=== PATIENT | female | born 1960 | race Hispanic/Latino ===

== ENCOUNTER 2024-09-13 17:51 | Emergency (ER) | payer MEDICARE, SELFPAY ==
--- NOTE | ~2024-09-13 | US_ITS ---
EXAMINATION: US venous doppler [facility] DATE: 09/13/2024 19:29 INDICATION: lower extremity swelling R>L. DVT concern . TECHNIQUE: Grayscale images without and with compression and Doppler images of the bilateral lower ex tremity veins were obtained. COMPARISON: None FINDINGS: The right common femoral vein, profunda (deep) femoral vein, femoral vein, popliteal vein, peroneal v ein, posterior tibial veins, gastrocnemius vein, and greater saphenous vein are patent. The left common femoral vein, profunda (deep) femoral vein, femoral vein, popliteal vein, peroneal v ein, posterior tibial veins, gastrocnemius vein, and greater saphenous vein are patent. IMPRESSION: Patent bilateral lower extremity veins. No evidence of deep venous thrombosis. Reviewed, dictated and finalized at location K.
[2024-09-13 17:55] VITALS: BP 151/54; PULSE 65; RESP 18; TEMP 36.4; O2SAT 100
--- NOTE | 2024-09-13 18:13 | PC.NURSE ---
Pt complains of R arm and vein pain as well.
--- OUTSIDE RECORDS SUMMARY | 2024-09-13 19:21 | XMS_ITS | Clinical Summary ---
Author Organization [facility] Address [address] [place] [address] Care Team Providers Care Brim Molder Name Role Phone Sally Victor MD Primary Care Provider Source Comments [facility],non-owned Affiliates and Associated Physician Practices is amultiple site organization consisting of ambulatory clinics and hospital sitesin [place], [place], [place] and [place]. This disclosure is being madepursuant to the Care Everywhere program and may not contain all information available regarding this patient. Last updated 18.[facility] Allergies No known active allergies Medications * Be aware that medications may not be up to date on this document. Alwaysverify current medications with the patient. Medication Sig Dispensed Refills Start Date End Date Status levothyroxine (SYNTHROID) 88 MCG tablet Take 88 mcg by mouth once daily Active Metoprolol Succinate 100 MG CS24 Active Active Problems Problem Noted Date Diagnosed Date Cyst of left breast 07/14/2019 Breast pain 04/23/2019 Immunizations Name Administration Dates Next Due INFLUENZA VACCINE 03/14/2019 Family History Medical History Relation Name Comments Cancer - Breast Maternal Aunt Cancer - Uterine Mother Diabetes - Type 2 Sister 1 ghanshyam Diabetes - Type 1 Sister 2 leonor Cancer - Thyroid Sister 3 Relation Name Status Comments Maternal Aunt Mother Sister 1 ghanshyam Alive Sister 2 leonor Alive Sister 3 Social History Tobacco Use Types Packs/Day Years Used Date Smoking Tobacco: Never Smokeless Tobacco: Never Alcohol Use Standard Drinks/Week Comments Not Currently 0 (1 standard drink = 0.6 oz pur e alcohol) AUDIT-C Answer Date Recorded Frequency of Alcohol Consumption Never 04/23/2019 Average Number of Drinks Not on file 019 Frequency of Binge Drinking Not on file 04/13 Sex and Gender Information Value Date Recorded Sex Assigned at Not on file Gender Identity Not on file Sexual Orientation Not on file Last Filed Vital Signs Vital Sign Reading Time Taken Comments Blood Pressure 151/75 10/09/2023 7:00 PM CDT Pulse 78 10/09/2023 7:00 PM CDT Temperature 37.1 C (98.8 F) 10/09/2023 7:00 PM CDT Respiratory Rate 14 10/09/2023 7:00 PM CDT Oxygen Saturation 98% 10/09/2023 7:00 PM CDT Inhaled Oxygen Concentration - - Weight 74.8 kg (165 lb) 10/09/2023 9:15 AM CDT Height 162.6 cm (5' 4 ) 10/09/2023 9:15 AM CDT Body Mass Index 28.32 10/09/2023 9:15 AM CDT Plan of Treatment Health Maintenance Due Date Last Done Comments BONE DENSITY TESTING 1960 COLOGUARD (AGES 45-75) - COLON CA SCREENING 1958 COLON MONITORING 1958 COLONOSCOPY - COLON CA SCREENING 1958 CT COLONOGRAPHY - COLON CA SCREENING 1960 Colorectal Cancer Screening 1958 FIT - COLON CA SCREENING 1958 FLEX SIG - COLON CA SCREENING 1958 LIPID TESTING 1958 MEDICARE AWV 12 MONTHS 1958 HEPATITIS C SCREENING 07/30/1976 DTAP/TDAP/TD VACCINES (1 - Tdap) 1977 PNEUMOCOCCAL VACCINE 50+ (1 of 1 - PCV) 2008 ZOSTER VACCINE (1 of 2) 2008 COVID-19 VACCINE ( - season) 2024 06/07/2021, 10/17/2020, 09/20/2020 INFLUENZA VACCINE (#1) 2024 , 04/12/2022, 03/18/2021, Additional history exists DEPRESSION SCREENING 06/13/2024 MAMMOGRAM 09/07/2025 09/08/2023, 04/13, 04/07/2021, Additional history exists SCREENING FOR DIABETES 10/08/2026 10/09/2023 Respiratory Syncytial Virus (RSV) Vaccine Pt: or over 60 yrs (1 - 1-dose 75+ series) 2033 HEPATITIS B VACCINE Aged Out No longe r eligible based on patient's age to complete this topic HIB VACCINE Aged Out No longer eligi ble based on patient's age to complete this topic HPV VACCINE Aged Out No longer eligi ble based on patient's age to complete this topic MENINGOCOCCAL (Group B) VACCINE SHARED DECISION-MAKING Aged Out No longer eligible based on patient's age to complete this topic MENINGOCOCCAL GROUPS A/C/Y/W VACCINE Aged Out No longer eligible based on patient's age to complete this topic Procedures Procedure Name Priority Date/Time Associated Diagnosis Comments COMPREHENSIVE METABOLIC PANEL STAT 10/09/2023 9:51 AM CDT MAMMO BILAT SCREENING W APOORVA Routine 09/08/2023 1:14 PM CDT Screening breast examination from Last 3 Months or Most Recently Relevant to Health Maintenance Results * (ABNORMAL) COMPREHENSIVE METABOLIC PANEL (10/09/2023 9:51 AM CDT) BUN 10 7 - 26 mg/dL 10/09/2023 10:31 AM [facility] Creatinine 0.57 0.56 - 0.96 mg/dL 10/09/2023 10:31 AM [facility] Sodium 138 136 - 145 mmol/L 10/09/2023 10:31 AM [facility] Potassium 4.0 3.5 - 4.5 mmol/L 10/09/2023 10:31 AM [facility] Chloride 104 98 - 107 mmol/L 10/09/2023 10:31 AM [facility] CO2 23 22 - 29 mmol/L 10/09/2023 10:31 AM [facility] Glucose 95 70 - 115 mg/dL 10/09/2023 10:31 AM [facility] Calcium 9.9 8.4 - 10.2 mg/dL 10/09/2023 10:31 AM [facility] Protein Total 8.4(H) 6.0 - 8.3 g/dL 10/09/2023 10:31 AM [facility] Albumin 4.3 3.4 - 5.0 g/dL 10/09/2023 10:31 AM [facility] Bilirubin Total 0.5 0.2 - 1.2 mg/dL 10/09/2023 10:31 AM [facility] Alkaline Phosphatase 92 40 - 150 U/L 10/09/2023 10:31 AM [facility] ALT 20 5 - 55 U/L 10/09/2023 10:31 AM [facility] AST 25 5 - 34 U/L 10/09/2023 10:31 AM [facility] Anion Gap 11 6 - 16 10/09/2023 10:31 AM [facility] BUN/Creatinine Ratio 18 7 - 23 10/09/2023 10:31 AM [facility] Osmolality Calculated 285 275 - 295 mOsm/kg 10/09/2023 10:31 AM [facility] Albumin/Globulin Ratio 1.0(L) 1.1 - 2.3 10/09/2023 10:31 AM [facility] eGFR by CKD-EPI >90 >=90 mL/min/1.7 3 m2 10/09/2023 10:31 AM [facility] Blood BLOOD SPECIMEN / Unknown Venipuncture / Unknown 10/09/2023 9:51 AM CDT 10/09/2023 10:03 AM CDT Lucas Barroso DO LAB - CHEMISTRY OR DERABLES Performing Organization Address [facility] de Phone Number [facility] [address] [place] [address], [facility] [phone] * MAMMO BILAT SCREENING W APOORVA (09/08/2023 1:14 PM CDT) Anatomical Region Laterality Modality Breast Bilateral Mammography 09/08/2023 4:34 PM CDT Impressions 09/08/2023 4:42 PM CDT : 1. Small mass in the left breast 2. No suspicious finding the right breast RECOMMENDATION: Diagnostic left mammogram. If indicated at that time, left breast ultrasound will be performed. Patient will be contacted and scheduled to return for the additional imaging. OVERALL ASSESSMENT: BI-RADS CATEGORY 0: INCOMPLETE: NEED ADDITIONAL IMAGING EVALUATION. > Interpreting Provider: Annelise Tabor MD on 09/08/2023 4:42 PM Narrative 09/08/2023 4:42 PM CDT EXAM: DIGITAL MAMMO BILAT SCREENING W APOORVA AND WITH CAD DATE OF EXAM: 09/08/2023 1:15 PM HISTORY: Screening. RISK ASSESSMENT CALCULATION: Patient completed a breast cancer risk assessment during her appointment on 04/23/2022. Based upon the information she provided and her mammographic breast density, her lifetime risk of developing breast cancer is 6 % (Average Risk <15%; Intermediate / Moderate Risk 15-19%; High Risk > 20%). COMPARISON: Prior breast imaging studies back to 2017, with the most recent dated 2021. TECHNIQUE: Tomosynthesis (3D) and reconstructed synthetic 2-D images acquired and reviewed in the bilateral craniocaudal and mediolateral oblique projections. A total of 5 images were obtained. Computer-aided detection (CAD) was utilized. BREAST COMPOSITION: Category A: The breasts are almost entirely fatty. FINDINGS: Right breast: No suspicious finding the right breast Left breast: In the left central slightly outer breast at mid depth there is a oval mass measuring approximately 0.7 cm. This is approximately 4 cm from the nipple on the craniocaudal view and best visualized on image 17 of 57. Sally Victor MD MAMMO ORDERABL ES from Last 3 Months or Most Recently Relevant to Health Maintenance Care Teams Brim Molder Relationship Specialty Start Date End Date Sally Victor MD [address], [place] [id number] PCP - General 03/19/19
--- OUTSIDE RECORDS SUMMARY | 2024-09-13 19:22 | XMS_ITS | Clinical Summary ---
Author Organization [facility] Address [address] [place] [address] Care Team Providers Care Roll Operator Name Role Phone Marcos Calles DO Primary Care Provider [phone] Allergies Active Allergy Reactions Criticality Noted Date Comments Hydrochlorothiazide Other (see comment) Medium 025 Urinary frequency Medications metoprolol tartrate (LOPRESSOR) 50 MG tabletIndication s:Primary hypertension Take 1 tablet (50 mg total) by mouth 2 (two) times daily. 60 tablet 2 08/16/19 25 Active losartan (COZAAR) 50 MG tabletIndication s:Primary hypertension Take 1 tablet (50 mg total) by mouth every evening. 30 tablet 2 08/16/19 25 Active levothyroxine (SYNTHROID) 88 MCG tabletIndication s:Hypothyroidism , unspecified type Take 1 tablet (88 mcg total) by mouth every morning. 30 tablet 2 08/16/19 25 Active hydroCHLOROthiaz kishore (MICROZIDE) 12.5 MG capsule Take 1 capsule (12.5 mg total) by mouth every morning. 025 Discontinued metoprolol tartrate (LOPRESSOR) 100 MG tablet Take 0.5 tablets (50 mg total) by mouth daily. 025 Discontinued levothyroxine (SYNTHROID) 88 MCG tablet Take 1 tablet (88 mcg total) by mouth every morning. 025 Discontinued(Re order) Active Problems Problem Noted Date Diagnosed Date Primary hypertension 08/15/2024 Hypothyroidism, unspecified type 08/15/2024 Postmenopausal 08/15/2024 Encounters Date Type Department Care Team Description 09/11/2024 1:00 PM CDT - 09/11/2024 11:59 PM CDT Hospital Encounter [facility] [address] [place] [address] Jose Messina MD Arrived Discharge Disposition: Home or Self Care (Routine Discharge) 09/11/2024 Travel 08/28/2024 11:00 AM CDT Laboratory Only [address] [address] Jose Messina MD 08/28/2024 - 08/28/2024 11:59 PM CDT Hospital Encounter [facility] [address] [place] [address] Jose Messina MD Discharge Disposition: Home or Self Care (Routine Discharge) 08/28/2024 Travel 08/15/2024 12:40 PM BRAND SALES MANAGER Office Visit [address] [address] Jose Messina MD Hypertension 08/15/2024 Travel from Last 3 Months Immunizations Name Administration Dates Next Due Fluzone High Dose (IIV, trivalent, 0.5mL) 2024 Social History Tobacco Use Types Packs/Day Years Used Date Smoking Tobacco: Never Smokeless Tobacco: Never Tobacco Cessation:Counseling Given: Yes Alcohol Use Standard Drinks/Week Comments Never 0 (1 standard drink = 0.6 oz pur e alcohol) PHQ-2 Answer Date Recorded Patient Health Questionnaire-2 Score 0 08/15/2024 Comments No Sex and Gender Information Value Date Recorded Sex Assigned at Female 08/02/2024 11:27 AM BRAND SALES MANAGER Legal Sex Female 7:36 PM CDT Gender Identity Not on file Sexual Orientation Not on file Last Filed Vital Signs Vital Sign Reading Time Taken Comments Blood Pressure 149/76 08/15/2024 12:59 PM BRAND SALES MANAGER Pulse 59 08/15/2024 12:55 PM BRAND SALES MANAGER Temperature 36.4 C (97.6 F) 08/15/2024 12:55 PM BRAND SALES MANAGER Respiratory Rate 19 08/15/2024 12:55 PM BRAND SALES MANAGER Oxygen Saturation 99% 08/15/2024 12:55 PM BRAND SALES MANAGER Inhaled Oxygen Concentration - - Weight 73.1 kg (161 lb 3.2 oz) 08/15/2024 12:55 PM BRAND SALES MANAGER Height - - Body Mass Index - - Plan of Treatment Upcoming Encounters Date Type Department Care Team (Late st Contact Info) Description 10/22/2024 10:00 AM CDT Office Visit [facility] Medical Group Multispecialty Care - [facility] [address] [facility] [place] [id number] Jose Messina MD [address] [place] [address]. [place] [address] Altaf Miranda PA-C [address] [place] [address] Health Maintenance Due Date Last Done Comments Colorectal Cancer Screening Colonoscopy (10 Years) 1960 Zoster Vaccines (1 of 2) 2008 Annual Medicare Wellness Visit 2023 COVID-19 Vaccine ( season) 2025 06/07/2021, 10/17/2020, 09/20/2020 Postponed from 02/12/2024 (Patient Refused) Mammogram Screening 09/11/2026 09/11/2024, 10/07/2023, 09/08/2023, Additional history exists DTaP, Tdap and Td Vaccines (2 - Td or Tdap) 08/02/2027 08/02/2017 RSV Immunization or 60+ Years (1 - 1-dose 75+ series) 2033 Pneumococcal Vaccine: 65+ Years Completed 09/30/2023 PHQ-2 (Physician Jasper) Completed 08/15/2024 Hepatitis C Completed 08/28/2024 Dexa Scan (General) Completed 09/11/2024 Meningococcal B Vaccine Aged Out No l onger eligible based on patient's age to complete this topic Meningococcal Vaccine Aged Out No kary catrina eligible based on patient's age to complete this topic RSV Immunizations Under 20 Months Aged Out No longer eligible based on patient's age to complete this topic Procedures Procedure Name Priority Date/Time Associated Diagnosis Comments MG SCREENING W APOORVA LIZ DIGI Routine 09/11/2024 2:00 PM CDT Encounter for screening mammogram for malignant neoplasm of breast BONE DENSITY/DEXA Routine 09/11/2024 1:5 1 PM CDT Postmenopausal LIPID PANEL Routine 08/28/2024 10:57 AM CDT Primary hypertension BASIC METABOLIC PANEL Routine 08/28/2024 10:57 AM CDT Primary hypertension CBC W/DIFF AUTOMATED Routine 08/28/2024 10:57 AM CDT Primary hypertension HEPATITIS C ANTIBODY Routine 08/28/2024 10:57 AM CDT Encounter for hepatitis C screening test for low risk patient TSH W/REFLEX Routine 08/28/2024 10:57 AM CDT Hypothyroidism, unspecified type COLLECTION VENOUS BLOOD VENIPUNCTURE Routine 08/28/2024 Hypothyroidism, unspecified type Encounter for hepatitis C screening test for low risk patient from Last 3 Months Results * MG SCREENING W APOORVA LIZ DIGI (09/11/2024 2:00 PM CDT) Anatomical Region Laterality Modality Breast Bilateral Mammography 09/11/2024 2:28 PM CDT Impressions 09/11/2024 2:32 PM CDT IMPRESSION: No significant interval change. No mammographic evidence of malignancy. RECOMMENDATION: Routine ScreeningBilateral OVERALL IMAGING ASSESSMENT: ACR BI-RADS 2 - BENIGN FINDING(S). Ordered By: JOSE MESSINA Interpreted By: Shahriar Scott, 09/11/2024 2:28 PM Narrative 09/11/2024 2:32 PM CDT [facility] [address] [place] [address] EXAMINATION: SCREENING W APOORVA LIZ DIGI INDICATIONS: Screening TECHNIQUE: Digital full field CC and MLO screening mammography bilaterally to include 3-D Tomosynthesis technique. This study was read with the assistance of a computer-aided detection system. HISTORY: No reported breast complaint. Prior right breast biopsy. No documented personal or first degree family history of breast cancer. No documented prior breast procedure. COMPARISON: Multiple prior examinations available for comparison dating back to 08/10/2011, the most recent of 10/07/2023, 08/31/2023, 04/23/2022, and 04/07/2021. TISSUE DENSITY: There are scattered areas of fibroglandular density. FINDINGS: Typically benign round, rim, and vascular calcifications bilaterally. Biopsy clip at the inner middle depth right breast. No suspicious microcalcification or mass. No developing asymmetry or architectural distortion. No axillary adenopathy. Procedure Note Shahriar Scott MD - 09/11/2024 [facility] [address] [place] [address] EXAMINATION: SCREENING W APOORVA LIZ DIGI INDICATIONS: Screening TECHNIQUE: Digital full field CC and MLO screening mammography bilaterallyto include 3-D Tomosynthesis technique. This study was read with theassistance of a computer-aided detection system. HISTORY: No reported breast complaint. Prior right breast biopsy. Nodocumented personal or first degree family history of breast cancer. Nodocumented prior breast procedure. COMPARISON: Multiple prior examinations available for comparison datingback to 08/10/2011, the most recent of 10/07/2023, 08/31/2023, 04/23/2022,and 04/07/2021. TISSUE DENSITY: There are scattered areas of fibroglandular density. FINDINGS: Typically benign round, rim, and vascular calcificationsbilaterally. Biopsy clip at the inner middle depth right breast. Nosuspicious microcalcification or mass. No developing asymmetry orarchitectural distortion. No axillary adenopathy. IMPRESSION: No significant interval change. No mammographic evidence ofmalignancy. RECOMMENDATION: Routine ScreeningBilateral OVERALL IMAGING ASSESSMENT: ACR BI-RADS 2 - BENIGN FINDING(S). Ordered By: JOSE MESSINA Interpreted By: Shahriar Scott, 09/11/2024 2:28 PM Jose Messina MD MAMMO Final Result * BONE DENSITY/DEXA (09/11/2024 1:51 PM CDT) Anatomical Region Laterality Modality Bone Mammography 09/11/2024 1:44 PM CDT Impressions 09/11/2024 1:45 PM CDT IMPRESSION: WHO Classification: Normal. RECOMMENDATIONS: All patients should ensure an adequate intake of dietary calcium and vitamin D. The NOF recommend adults under the age of 50 need 1000 mg of calcium and 400-800 IU of vitamin D daily. Effective therapy for the prevention and treatment of osteoporosis include bisphosphonates. FOLLOW-UP: People with diagnosed cases of osteoporosis or at high risk for fracture should have regular bone mineral density test. For patients eligible for Medicare, routine testing is allowed once every 2 years. Testing frequency can be increased to one year for patients who have rapidly progressing disease, those who are receiving or discontinuing medical therapy to restore bone mass, or have additional risk factors. Ordered By: JOSE MESSINA Interpreted By: Shahriar Scott, 09/11/2024 1:44 PM Narrative 09/11/2024 1:45 PM CDT [facility] [address] [place] [address] EXAMINATION: BONE DENSITY/DEXA INDICATIONS: Asymptomatic menopausal state COMPARISON: None TECHNIQUE: DEXA bone mineral density evaluation was performed in the AP projection over the lumbar spine and both hips utilizing standard imaging techniques. FINDINGS: The BMD measured at the AP spine L1-L4 is 1.000 g/cm? with a T-score of -0.4. The BMD measured at the left femoral neck is 0.831 g/cm? with a T-score of -0.2. The BMD measured at the left hip is 0.921 g/cm? with a T-score of -0.2. The BMD measured at the right femoral neck is 0.804 g/cm? with a T-score of - 0.4. The BMD measured at the right hip is 0.934 g/cm? with a T-score of -0.1. FRAX 10-year fracture risk: Major Osteoporotic Fracture: 4.1% Hip Fracture: 0.2% Procedure Note Shahriar Scott MD - 09/11/2024 [facility] [address] [place] [address] EXAMINATION: BONE DENSITY/DEXA INDICATIONS: Asymptomatic menopausal state COMPARISON: None TECHNIQUE: DEXA bone mineral density evaluation was performed in the APprojection over the lumbar spine and both hips utilizing standard imagingtechniques. FINDINGS: The BMD measured at the AP spine L1-L4 is 1.000 g/cm? with a T-score of-0.4. The BMD measured at the left femoral neck is 0.831 g/cm? with a T-score of-0.2. The BMD measured at the left hip is 0.921 g/cm? with a T-score of -0.2. The BMD measured at the right femoral neck is 0.804 g/cm? with a T-scoreof -0.4. The BMD measured at the right hip is 0.934 g/cm? with a T-score of -0.1. FRAX 10-year fracture risk: Major Osteoporotic Fracture: 4.1% Hip Fracture: 0.2% IMPRESSION: WHO Classification: Normal. RECOMMENDATIONS: All patients should ensure an adequate intake of dietary calcium andvitamin D. The NOF recommend adults under the age of 50 need 1000 mg ofcalcium and 400-800 IU of vitamin D daily. Effective therapy for theprevention and treatment of osteoporosis include bisphosphonates. FOLLOW-UP: People with diagnosed cases of osteoporosis or at high risk for fractureshould have regular bone mineral density test. For patients eligible forMedicare, routine testing is allowed once every 2 years. Testing frequencycan be increased to one year for patients who have rapidly progressingdisease, those who are receiving or discontinuing medical therapy torestore bone mass, or have additional risk factors. Ordered By: JOSE MESSINA Interpreted By: Shahriar Scott, 09/11/2024 1:44 PM Jose Messina MD DEXA Final Result * TSH W/REFLEX (08/28/2024 10:57 AM CDT) TSH 1.326 0.358 - 3.740 uIU/ML 08/28/2024 7:31 PM [address] [facility] 08/28/2024 10:5 7 AM CDT Jose Messina MD LABORATORY Final Result [facility] [address] [place] [address], * (ABNORMAL) BASIC METABOLIC PANEL (08/28/2024 10:57 AM CDT) SODIUM S/P/B 143 136 - 145 MMOL/L 08/28/2024 7:[address] [facility] POTASSIUM S/P/B 4.6 3.5 - 5.1 MMOL/L 08/28/2024 7:31 PM [address] [facility] CHLORIDE S/P/B 107 98 - 107 MMOL/L 08/28/2024 7:31 PM CDT [facility] CO2 27.3 21 - 32 MMOL/L 08/28/2024 7:31 PM CD[address] [facility] GLUCOSE 88 70 - 99 MG/DL 08/28/2024 7:31 PM CD[address] [facility] BUN 12 7 - 18 MG/DL 08/28/2024 7:31 PM CD[address] [facility] CREATININE S/P/B 0.54(L) 0.55 - 1.02 MG/DL 08/28/2024 7:31 PM CDT [facility] [place] CALCIUM S/P/B 9.1 8.4 - 10.5 MG/DL 08/28/2024 7:31 PM CDT [facility] ANION GAP 8.7 5 - 15 MMOL/L 08/28/2024 7:31 PM CD[address] [facility] Comment:REFERENCE RANGE NOT ESTABLISHED OSMOLALITY (CALC) 295 MOSM/KG 025 7:31 PM CDT [facility] Comment:REFERENCE RANGE NOT ESTABLISHED GFR ESTIMATE >90 >90 ML/MIN/1. 73 M2 08/28/2024 7:31 PM [address] [facility] GFR NOTES GFR REFERENCE S: 08/28/2024 7:31 PM CDT [facility] Comment: THE ESTIMATED GFR IS CALCULATED USING THE 2020 CKD-EPI EQUATION. THE FOLLOWING CATEGORIES FOR GRADING RENAL FUNCTION ARE RECOMMENDED BY THE INTERNATIONAL SOCIETY OF NEPHROLOGY (KDIGO 2012 CLINICAL PRACTICE GUIDELINE). G1,NORMAL OR HIGH: >89 ml/min/1.73 m2 G2,MILDLY DECREASED: 60-89 ml/min/1.73 m2 G3A,MILDLY TO MODERATELY DECREASED: 45-59 ml/min/1.73 m2 G3B,MODERATELY TO SEVERELY DECREASED: 30-44 ml/min/1.73 m2 G4,SEVERELY DECREASED: 15-29 ml/min/1.73 m2 G5,KIDNEY FAILURE: <15 ml/min/1.73 m2 08/28/2024 10:5 7 AM CDT us Jose Messina MD LABORATORY Final Result [facility] [address] [facility] [place] [address], [place] [phone] * LIPID PANEL (08/28/2024 10:57 AM CDT) CHOLESTEROL 167 <200 MG/DL 08/28/2024 7:31 PM [address] [facility] TRIGLYCERIDES 45 <150 MG/DL 08/28/2024 7:31 PM CD[address] [facility] HDL 72 >40 MG/DL 08/28/2024 7:31 PM CDT [facility] LDL-C 86 <100 MG/DL 08/28/2024 7:31 PM CDT [facility] VLDL CALCULATION 9 5 - 28 MG/DL 08/28/2024 7:31 PM CD[address] [facility] CHOL/HDL RATIO 2.3 0.0 - 4.0 08/28/2024 7:31 PM [address] [facility] LDL/HDL 1.2 0.41 - 2.13 08/28/2024 7:31 PM CDT [facility] NON HDL CHOLESTEROL 95 <140 MG/DL 08/28/2024 7:31 PM CD[address] [facility] 08/28/2024 10:5 7 AM CDT us Jose Messina MD LABORATORY Final Result [facility] [address] [place] [address], * HEPATITIS C ANTIBODY ([facility] ONLY) (08/28/2024 10:57 AM CDT) HEPATITIS C AB NON-REACTI VE NON-REACT SORIN 08/29/2024 6:30 PM CDT [facility] Comment: ANTIBODIES TO HCV NOT DETECTED. DOES NOT EXCLUDE THE POSSIBILITY OF EXPOSURE TO HCV. 08/28/2024 10:5 7 AM CDT us Jose Messina MD LABORATORY Final Result [facility] [address] [place] [address], [id number] * (ABNORMAL) CBC W/DIFF AUTOMATED (08/28/2024 10:57 AM CDT) [facility] WBC 4.94 4.00 - 10.80 x10'3/uL 08/28/2024 7:48 PM CDT [facility] RBC 4.49 4.10 - 5.40 x10'6/uL 08/28/2024 7:48 PM CDT [facility] HGB 13.8 12.0 - 16.0 G/DL 08/28/2024 7:[address] [facility] HCT 41.8 36.0 - 47.0 % 08/28/2024 7:48 PM CDT [facility] MCV 93.1 78.0 - 100.0 FL 08/28/2024 7:[address] [facility] MCH 30.7 27.0 - 31.0 PG 08/28/2024 7:[address] [facility] MCHC 33.0 33.0 - 36.0 G/DL 08/28/2024 7:[address] [facility] RDW 13.5 11.5 - 14.5 % 08/28/2024 7:[address] [facility] PLT 198 150 - 350 x10'3/uL 08/28/2024 7:48 PM CDT [facility] MPV 12.1(H) 7.4 - 10.4 FL 08/28/2024 7:[address] [facility] DIFFERENTIAL TYPE AUTOMATED DIFFERENTIAL 08/28/2024 7:[address] [facility] NEUTROPHILS % 50.4 % 08/28/2024 7:[address] [facility] LYMPHOCYTES % 40.5 % 08/28/2024 7:[address] [facility] MONOCYTES % 7.3 % 08/28/2024 7:48 PM CDT [facility] EOSINOPHILS % 1.2 % 08/28/2024 7:48 PM CDT [facility] BASOPHILS % 0.6 % 08/28/2024 7:[address] [facility] IMMATURE GRANS % 0.0 % 08/28/2024 7:48 PM CDT [facility] ABS. NEUTROPHILS 2.49 1.60 - 8.30 x10'3/uL 08/28/2024 7:48 PM CDT [facility] ABS. LYMPHOCYTES 2.00 0.80 - 4.70 x10'3/uL 08/28/2024 7:[address] [facility] ABS. MONOCYTES 0.36 0.00 - 1.50 x10'3/uL 08/28/2024 7:[address] [facility] ABS. EOSINOPHILS 0.06 0.00 - 0.40 x10'3/uL 08/28/2024 7:[address] [facility] ABS. BASOPHILS 0.03 0.00 - 0.20 x10'3/uL 08/28/2024 7:[address] [facility] ABS. IMMATURE GRANULOCYTES 0.00 0.00 - 0.03 x10'3/uL 08/28/2024 7:[address] [facility] 08/28/2024 10:5 7 AM CDT us Jose Messina MD LABORATORY Final Result [facility] [address] [place] [address], [place] [phone] * COLLECTION VENOUS BLOOD VENIPUNCTURE (08/28/2024) us Jose Messina MD PROCEDURES Final Result from Last 3 Months Insurance [employer] Care Teams Roll Operator Relationship Specialty Start Date End Date [place] [address] PCP - General FAMILY PRACTICE 03/01/24
--- OUTSIDE RECORDS SUMMARY | 2024-09-13 19:22 | XMS_ITS | Encounter Summary ---
Author Organization [facility] Address [facility] [place] [address] Care Team Providers Care Concrete Crusher Loader Operator Name Role Phone StevanMarcos wong Primary Care Provider [phone] Reason for Referral * Imaging (Routine) - New Request Specialty Diagnoses / Procedures Referred By Lizy jett Referred To Contact RADIOLOGY Diagnoses Encounter for screening mammogram for malignant neoplasm of breast Procedures MG SCREENING W APOORVA LIZ Jose Meehan MD [address] [place] [address]. [place] [address] Phone: tel: fax: Referral ID Status Reason Start Date Expiration Date V isits Requested Visits Authorized New Request 08/15/2024 10/15/2025 1 1 * Imaging (Routine) - New Request Specialty Diagnoses / Procedures Referred By Lizy t Referred To Contact RADIOLOGY Diagnoses Postmenopausal Procedures BONE DENSITY/DEXA Jose Messina MD [address] [place] [address]. [place] [address] Phone: tel: fax: Referral ID Status Reason Start Date Expiration Date V isits Requested Visits Authorized New Request 08/15/2024 09/14/2025 1 1 Reason for Visit * Imaging (Routine) - New Request Specialty Diagnoses / Procedures Referred By Contac t Referred To Contact RADIOLOGY Diagnoses Postmenopausal Procedures BONE DENSITY/DEXA Jose Messina MD [address] [place] [address] Phone: tel: fax: Referral ID Status Reason Start Date Expiration Date V isits Requested Visits Authorized [id number] New Request 08/15/2024 09/14/2025 1 1 Encounter Details Date Type Department Care Team (Latest Contact Info) Description 09/11/2024 1:00 PM CDT - 09/11/2024 11:59 PM CDT Hospital Encounter [facility] Mammography [address] [place], [place] [id number] Jose Messina MD [facility] 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 30 tablet 2 08/15/2024 losartan (COZAAR) 50 MG tabletIndications:P rimary hypertension Take 1 tablet (50 mg total) by mouth every evening. 30 tablet 2 08/15/2024 metoprolol tartrate (LOPRESSOR) 50 MG tabletIndications:P rimary hypertension Take 1 tablet (50 mg total) by mouth 2 (two) times daily. 60 tablet 2 08/15/2024 documented as of this encounter Plan of Treatment Upcoming Encounters Date Type Department Care Team (Late st Contact Info) Description 10/22/2024 10:00 AM CDT Office Visit [facility] Medical Group Multispecialty Care - [facility] [address] [facility] [facility] [place] [address] Jose Messian MD [address] [place] [address]. [place] [address] Altaf Miranda PA-C [address] [facility] [address] [place] [address] documented as of this encounter Procedures Procedure Name Priority Date/Time Associated Diagnosis Comments MG SCREENING W APOORVA LIZ DIGI Routine 09/11/2024 2:00 PM CDT Encounter for screening mammogram for malignant neoplasm of breast BONE DENSITY/DEXA Routine 09/11/2024 1:5 1 PM CDT Postmenopausal documented in this encounter Results * MG SCREENING W APOORVA LIZ [...] 2:28 PM Narrative 09/11/2024 2:32 PM CDT [facility] [place] [address] EXAMINATION: MG SCREENING W APOORVA LIZ DIGI INDICATIONS: Screening [...] Procedure Note Shahriar Scott MD - 09/11/2024 [facility] [place] [address] EXAMINATION: MG SCREENING W APOORVA LIZ DIGI INDICATIONS: Screening [...] Ordered By: JOSE MESSINA Interpreted By: Shahriar Sctot, 09/11/2024 2:28 PM Jose Messina MD MAMMO [...] 1:44 PM Narrative 09/11/2024 1:45 PM CDT [facility] [place] [address] EXAMINATION: BONE DENSITY/DEXA INDICATIONS: Asymptomatic menopausal state [...] Procedure Note Shahriar Scott MD - 09/11/2024 [facility] [place] [address] EXAMINATION: BONE DENSITY/DEXA INDICATIONS: Asymptomatic menopausal state [...] PM Jose Messina MD DEXA Final Result documented in this encounter Visit Diagnoses Diagnosis Postmenopausal Asymptomatic postmenopausal status (age-related) (natural) Encounter for screening mammogram for malignant neoplasm of breast Other screening mammogram documented in this encounter Care Teams Concrete Crusher Loader Operator Relationship Specialty Start Date End Date Marcos Calles DO [address] [place] [address] PCP - General FAMILY PRACTICE 03/01/24 documented as of this encounter
--- NOTE | 2024-09-13 19:25 | ED.EXTPRO ---
HPI - Extremity Problem General Chief complaint: Extremity Problem,Nontraumatic Stated complaint: Right leg pain x 3 days, right arm pain/numbness Time Seen by Provider: 09/13/24 19:02 History of Present Illness HPI Narrative: 64-year-old female with a past medical history including hypothyroidism and arthritis. Patient presents to the emergency room with chief complaint of pain in her leg and veins. For last 3 days she started developing some varicose veins in her bilateral lower extremities right worse than left. She states they are painful to the touch. Patient has a family history of blood clots but no personal history of blood clots. No anticoagulation use. No aspirin or Plavix. Patient was otherwise in her normal state of health. She is describing pain in her right lower extremity compared to the left and some more swelling without any traumatic injuries. States that she is also having pain long venous distribution of her right thigh and in her right arm. Patient is primarily Nepalese speaking and dean of admissions was able to translate for us. Related Data Allergies Allergy/AdvReac Type Severity Reaction Status Date / Time No Known Allergies Allergy Verified 09/13/24 17:55 Review of Systems Review of Systems: As reviewed above in HPI Exam Narrative: GENERAL: [Well-appearing, well-nourished, and in no acute distress.] HEAD: [Normocephalic, atraumatic.] EYES: [PERRLA and EOMI.] ENT: Nares clear, no rhinorrhea or epistaxis. Mucous membranes moist. NECK: Supple. CHEST: [Clear to auscultation. No respiratory distress.] HEART: [Regular rate and rhythm]. No murmur heard. [Normal peripheral pulses.] ABDOMEN: [Soft, nondistended], [nontender], [No rigidity or guarding] EXTREMITIES: Normal range of motion. [No edema.] SKIN: Varicose veins with spider veins in her right lower extremity more so than the left, tenderness along the distribution but no overlying skin changes otherwise. No cellulitis. No calf cramping. No varicose veins or spider veins in the upper extremities or chest. NEURO: [No focal deficits]. Alert and oriented [x3.] PSYCH: [Normal mood and affect.] Course Vital Signs Vital signs: Vital Signs Temperature 36.4 C 09/13/24 17:55 Pulse Rate 65 09/13/24 17:55 Respiratory Rate 18 09/13/24 17:55 Blood Pressure 151/54 H 09/13/24 17:55 Pulse Oximetry 100 09/13/24 17:55 Oxygen Delivery Room Air 09/13/24 17:55 Temperature 36.4 C 09/13/24 17:55 Pulse Rate 71 09/13/24 20:38 Respiratory Rate 18 09/13/24 20:38 Blood Pressure 139/42 L 09/13/24 20:38 Pulse Oximetry 100 09/13/24 20:38 Oxygen Delivery Room Air 09/13/24 17:55 MDM - Extremity (Nontraumatic) MDM Narrative Medical decision making narrative: 64-year-old female with a past medical history including hypothyroidism and arthritis. She presents with 3 days of pain along the venous distribution her right lower extremity compared to left. She has had some spider veins and varicose veins developed and has a family history of blood clots but no personal history of blood clots. She is otherwise well-appearing, no risk factors such as recent travel or procedures. Does not take any anticoagulation medications. Her examination is reassuring aside from some spider veins that do not appear inflamed or having any overlying skin changes concerning for cellulitis. Workup was ordered including CBC, CMP, ESR and CRP as well as a uric acid and we provider Toradol for analgesia. Doppler studies of the extremities were ordered for further delineation of any possible blood clots although suspicion is low. Patient's laboratory studies are reassuring. No leukocytosis or anemia. Negative inflammatory markers. Normal electrolytes. Normal PT and PTT. Doppler ultrasound shows no evidence of a DVT. Patent bilateral extremity veins. Patient remains hemodynamically stable and appropriate for discharge home at this time with outpatient follow-up with her primary doctor. Lab Data 09/13/24 19:31 09/13/24 19:31 Labs: Lab Results 09/13/24 Range/Units 19:31 WBC 6.0 (4.5-10.0) K/mm3 RBC 4.56 (4.2-5.4) M/mm3 Hgb 14.0 (12.0-15.0) g/dL Hct 43.3 (37.0-47.0) % MCV 95.0 (80-100) fl MCH 30.7 (26-34) pg MCHC 32.3 (32-36) g/dl RDW 13.6 (11.5-14.5) % Plt Count 195 (150-375) k/mm3 MPV 10.7 H (7.4-10.4) fl Immature Gran % (Auto) 0.2 (0-0.5) % Neut % (Auto) 58.2 (45.5-73.1) % Lymph % (Auto) 33.1 (18.3-44.2) % Mcminn % (Auto) 6.8 (2.6-8.5) % Eos % (Auto) 1.2 (0-4.4) % Baso % (Auto) 0.5 (0.2-1.2) % Lymph # (Auto) 1.99 (0.9-3.2) K/mm3 Mcminn # (Auto) 0.4 (0.1-0.6) K/mm3 Eos # (Auto) 0.1 (0-0.3) K/mm3 Baso # (Auto) 0.0 (0.0-0.1) K/mm3 Abs Immat Gran (auto) 0.01 (0.00-0.031) K/mm3 Absolute Neuts (auto) 3.5 (1.3-6.7) K/mm3 Absolute Nucleated RBC 0.000 (0.0-0.012) K/mm3 Nucleated RBC % 0.0 (0.0-0.2) % ESR 19 (0-20) mm/hr PT 13.5 (11.1-14.7) Seconds INR 1.0 APTT 30.4 (22.3-36.8) Seconds Sodium 138 (137-145) mmol/L Potassium 4.5 (3.4-5.0) mmol/L Chloride 105 (98-107) mmol/L Carbon Dioxide 24 (22-30) mmol/L Anion Gap 9 (4-12) mmol/L BUN 17 (7-17) mg/dL Creatinine 0.64 L (0.7-1.0) mg/dL Estim Creat Clear Calc 67 ml/min Estimated GFR > 60 (59 - ) Glucose 97 (65-110) mg/dL Uric Acid 3.5 (2.5-7.5) mg/dL Calcium 9.5 (8.4-10.2) mg/dL C-Reactive Protein < 0.5 (<1.0) mg/dL Discharge Plan Discharge Clinical Impression: Painful veins, Spider veins of both lower extremities Patient Disposition: Home, Self-Care Condition: Stable Instructions: Antibiotic Form, Venous Insufficiency (DC) Additional Instructions: No blood clot seen on your ultrasound, your laboratory studies are all normal. No signs of inflammation or infection. Take Tylenol and ibuprofen for any pain, wear compression stockings for your veins. Follow-up with your regular doctor about this for further recommendations and referrals to specialists as needed. Patient Language: Nepalese Follow-up/Referrals: PHYSICIAN NOT ON STAFF,NONSTAFF [Primary Care Provider] - Time of Disposition: 21:17
[2024-09-13] MEDS: KETOROLAC 15 MG/ML VIAL (*BKC) IV PUSH (19:31)
[2024-09-13 19:37] LABS: Basophils Percent Auto 0.5 % (0.2-1.2); Eosinophils Absolute Auto 0.1 K/mm3 (0-0.3); Eosinophils Percent Auto 1.2 % (0-4.4); Hematocrit 43.3 % (37.0-47.0); Immature Granulocyte Absolute 0.01 K/mm3 (0.00-0.031); Immature Granulocyte Percent A 0.2 % (0-0.5); Lymphocytes Absolute Auto 1.99 K/mm3 (0.9-3.2); Lymphocytes Percent Auto 33.1 % (18.3-44.2); Mean Corpuscular HGB Conc 32.3 g/dl (32-36); Mean Corpuscular Hemoglobin 30.7 pg (26-34); Mean Platelet Volume 10.7 fl (7.4-10.4); Monocytes Absolute Auto 0.4 K/mm3 (0.1-0.6); Monocytes Percent Auto 6.8 % (2.6-8.5); Neutrophils Absolute Auto 3.5 K/mm3 (1.3-6.7); Neutrophils Percent Auto 58.2 % (45.5-73.1); Platelet Count Result 195 k/mm3 (150-375); Red Blood Count 4.56 M/mm3 (4.2-5.4); Red Cell Distribution Width 13.6 % (11.5-14.5)
[2024-09-13 19:47] LABS: Anion Gap 9 mmol/L (4-12); Blood Urea Nitrogen 17 mg/dL (7-17); Calcium 9.5 mg/dL (8.4-10.2); Carbon Dioxide 24 mmol/L (22-30); Chloride 105 mmol/L (98-107); Estimated CRCL calculation 67 ml/min; Estimated Glomerular Filt Rate > 60; Glucose 97 mg/dL (65-110); Potassium 4.5 mmol/L (3.4-5.0); Prothrombin Time 13.5 Seconds (11.1-14.7); Sodium 138 mmol/L (137-145)
[2024-09-13 19:48] LABS: Partial Thromboplastin Time 30.4 Seconds (22.3-36.8)
[2024-09-13 19:49] LABS: CRP < 0.5 mg/dL (<1.0); Uric Acid 3.5 mg/dL (2.5-7.5)
[2024-09-13 20:01] LABS: Erythrocyte Sedimentation Rate 19 mm/hr (0-20)
[2024-09-13 20:38] VITALS: BP 139/42; PULSE 71; RESP 18; O2SAT 100
[2024-09-13 21:49] VITALS: BP 129/66; PULSE 78; RESP 18; O2SAT 99
== END 2024-09-13 21:50 | disposition home or self-care (01) ==
PROVIDERS: Emergency Provider Student in an Organized Health Care Education/Training Program
DX: I83.813 Varicose veins of bilateral lower extremities with pain (principal)
CPT/HCPCS: 36415; 80048; 84550; 85025; 85610; 85652; 85730; 86140; 93970; 96374; 99284; J1885